=== PATIENT | female | born 1980 | race African-American/Black ===

== ENCOUNTER 2017-08-26 00:53 | Inpatient (IN) | payer OTHER ==
[~2017-08-26] VITALS: Ht 154.9 cm; Wt 100.7 kg
[2017-08-26] MEDS ORDERED: SODIUM CHLORIDE 0.9% 1000ML 1,000 ML IV SCH ×3 (03:00→04:00)
[2017-08-26] MEDS ORDERED: LORAZEPAM INJ 2 MG/ML VIAL IV ONE ×2 (04:15→14:50)
[2017-08-26] MEDS ORDERED: GABAPENTIN300 MG PO (05:34)
[2017-08-26] MEDS ORDERED: FOLIC ACID1 MG PO (05:34)
[2017-08-26] MEDS ORDERED: MORPHINE SULFAT30 M2 PO (05:34)
[2017-08-26] MEDS ORDERED: TIZANIDINE HCL4 M1 PO (05:34)
[2017-08-26] MEDS ORDERED: DILAUDID2 MG (05:34)
[2017-08-26] MEDS ORDERED: ACETAMINOPHEN 325 MG TAB PO ONE (08:15)
[2017-08-26 11:15] VITALS: BP 117/68
[2017-08-26] MEDS: SODIUM CHLORIDE 0.9% 1000ML 1,000 ML IV SCH ×2 (11:46→15:45)
[2017-08-26] MEDS ORDERED: NORCO 10-325 T1 EACH PO (12:04)
[2017-08-26] MEDS ORDERED: CYMBALTA30 MG PO (12:05)
[2017-08-26] MEDS ORDERED: LORAZEPAM INJ 2 MG/ML VIAL ONE ×2 (14:01→15:53)
[2017-08-26] MEDS ORDERED: HYDROCODONE/APAP 10MG-325MG TAB PO SCH (15:00)
[2017-08-26] MEDS: LORAZEPAM INJ 2 MG/ML VIAL IV PRN (15:53)
[2017-08-26 16:28] VITALS: BP 116/79
[2017-08-26] MEDS: GABAPENTIN 100 MG CAP PO SCH ×2 (17:19→20:54)
[2017-08-26] MEDS: TIZANIDINE HCL 4 MG TAB PO SCH (17:19)
--- NOTE | 2017-08-26 17:23 | Consultation ---
DATE OF CONSULTATION: August 26, 2017 INFECTIOUS DISEASE CONSULTATION REASON FOR CONSULTATION: Leukocytosis in a patient with sickle cell disease. HISTORY OF PRESENT ILLNESS: This is a patient who is a 37-year-old female who has sickle cell disease. Apparently she has been in several hospitals. She has been on several pain medications as an outpatient. She is telling me she gets Demerol and morphine as an outpatient, but she apparently ran out of them and started to have severe pain in her legs and feet; so, she came to the hospital. No fever or chills. The patient came to the emergency room with not feeling well. Apparently she had seizure, also. Infectious Disease was consulted. Neurology was consulted. The patient, who is currently lying in bed, looks comfortable, but she says she is having severe pain. PAST MEDICAL HISTORY: Sickle cell disease. Multiple admissions to the hospital. She has no IV access left. 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 PAST SURGICAL HISTORY: Several admissions to the hospital and no IV access anymore. ALLERGIES: IBUPROFEN. SOCIAL HISTORY: No smoking, drug abuse, alcohol abuse. FAMILY HISTORY: Otherwise sickle cell. REVIEW OF SYSTEMS: GENERAL: The patient is generally just not feeling well. HEENT: She is having headache. She is having nausea. Apparently there was seizure. She is having severe pain in her feet. She is having pain everywhere. She is feeling short of breath. Minimal cough. Pain in the joint. LABORATORY DATA: Still pending. PHYSICAL EXAMINATION: GENERAL: She is currently alert, oriented, does not seem to be in acute distress. VITALS: Stable. Currently afebrile. HEENT: She does not appear icteric. NECK: Supple. CHEST: Clear. HEART: S1/S2. No S3, no S4. No murmur. ABDOMEN: Soft. Bowel sounds present. No tenderness. EXTREMITIES: No edema. SKIN: No rash. IMPRESSION: I think the patient is having sickle cell crisis. There is no fever, no chills. I would suggest to obtain CBC and chem panel. If she has fever, will get blood cultures. The problem is she has no IV access. Will discuss with the attending. Discussed with Dr. Armando. From infectious disease point of view, at the present time just IV fluid, hydroxyurea. Will follow. Job#: [id number] EV
--- NOTE | 2017-08-26 18:45 | Consultation ---
DATE OF CONSULTATION: August 26, 2017 at 4:30 p.m. NEUROLOGICAL CONSULTATION REASON FOR CONSULTATION: Seizures. This 37-year-old female was brought to the emergency room because of severe pain in both legs. She described it as aching and sharp pain in both lower extremities, more on the right side. The patient had these symptoms off and on. While the patient was in the emergency room, she apparently had a generalized tonic/clonic seizure that lasted for several minutes with mild postictal state, reason for which she was hospitalized and was given Ativan 2 mg IV. The patient has history of sickle cell disease. She came to the emergency room saying that she is going to have a crisis and she has been hospitalized at many hospitals around the area for this same problem. She has been on a lot of narcotic medicine including morphine, Dilaudid, Narco and apparently she has run out of that. She has . The last time she has been hospitalized has been at [facility] 3 weeks ago for sickle cell crisis and for seizures. We had to request records because the patient has no recollection of the medications. She said at one time they gave her Keppra that does not work, Depakote that does not work, and then another medication that made her sick and another medication makes her sleepy. She does not remember taking Dilantin, or any other anticonvulsants. She lives alone. There is no one available to give the list of medications. The patient is asking for pain medication because of the pain in the lower extremities. PAST MEDICAL HISTORY: As mentioned. She has history of hypertension. Sickle cell disease. Asthma. Seizure disorder. She denies any other problems. ALLERGIES: SHE SAYS SHE HAS SOME ALLERGIES. MEDICATIONS: List of medications we do not have available. PHYSICAL EXAMINATION GENERAL: At this time of this examination, she apparently came out of the seizure several minutes ago and she is having the EEG. VITAL SIGNS: Blood pressure 116/79, pulse 90, temperature 96.7. LUNGS: Clear to auscultation. HEART: Regular sinus rhythm. ABDOMEN: No organomegaly, no tenderness. EXTREMITIES: Lower extremities a little edematous and painful to pressure. NEUROLOGIC: Speech is clear. She follows commands well. She is able to answer questions. Extraocular movements were full. Visual hughes were normal. No facial weakness. Tongue protrudes midline. The patient is able to elevate arms without any difficulty. Difficulty moving both legs because of the pain, but she says she is able to ambulate. Plantar stimulation down bilaterally. Very difficult to touch the legs because she screams with pain, and she is asking for pain medication, either Dilaudid or morphine. LABORATORY DATA: From the urgent care, all the tests, sodium, potassium, chloride normal. CBC shows a white count of 6900, hemoglobin 11.1, hematocrit 32.9 and platelets 255,000, all between normal range. Sodium and potassium are normal. Liver enzymes are normal. Urinalysis: Positive for oxycodone, morphine, , tricycles. I reviewed the EEG now and definitely the patient has several paroxysmal discharges, bipolar spikes, ____ wave amplitude lasting up to several seconds seen bilaterally. Record is contaminated with excessive muscle artifact. IMPRESSION 1. Seizure disorder, generalized tonic/clonic type, unspecified. 2. Hypertension. 3. Sickle cell crisis. 4. Drug addiction. RECOMMENDATIONS: Get records of medications. We have no medications. She does not know anything about the medications she has been taking, all the anticonvulsant medications have been given, and she said they do not work, but making her sick or making her sleepy. So, in the meantime we are going to keep her just on Ativan on a p.r.n. basis to control further seizures and discuss with the attending physician for further options. Last time she has been hospitalized at [facility]. We will try to get records from there. Job#: [id number]
[2017-08-26] MEDS: DEPAKOTE DELAYED-RELEASE TAB 500 MG PO SCH (19:21)
[2017-08-26] MEDS ORDERED: ONDANSETRON HCL INJ 2 MG/ML VIAL IV PRN (19:45)
[2017-08-26 20:00] VITALS: BP 111/68
[2017-08-26] MEDS: ACETAMINOPHEN/CODEINE 300MG - 30MG TAB PO PRN (20:54)
[2017-08-26] MEDS: LORATADINE 10 MG TAB PO SCH (20:54)
[2017-08-26] MEDS ORDERED: XANAX1 MG PO (23:06)
[2017-08-26] MEDS ORDERED: POTASSIUM CHLO20 ME1 PO (23:06)
[2017-08-26] MEDS ORDERED: LASIX40 MG PO (23:06)
[2017-08-26] MEDS ORDERED: PROMETHAZINE HC50 MG PO (23:06)
[2017-08-26] MEDS ORDERED: BENADRYL25 M1 PO (23:07)
[2017-08-26] MEDS ORDERED: HYDROMORPHO1 MG/1 ML IV (23:11)
[2017-08-26] MEDS ORDERED: ALPRAZOLAM 0.5 MG TAB PO PRN (23:30)
[2017-08-26] MEDS: ALPRAZOLAM 0.5 MG TAB PO SCH (23:54)
[2017-08-27] VITALS (8 sets, daily range): BP systolic 104–144; BP diastolic 60–83
[2017-08-27] MEDS ORDERED: GABAPENTIN 100 MG CAP PO ONE (00:45)
[2017-08-27] MEDS ORDERED: FUROSEMIDE INJ 10 MG/ML 4 ML VIAL IV ONE (00:45)
[2017-08-27] MEDS: POTASSIUM CHLORIDE 10 MEQ TABCR PO ONE ×2 (00:57→02:00)
[2017-08-27] MEDS: LORAZEPAM INJ 2 MG/ML VIAL IV PRN (01:15)
[2017-08-27] MEDS: ACETAMINOPHEN/CODEINE 300MG - 30MG TAB PO PRN (02:00)
[2017-08-27 02:15] LABS: BILIRUBIN,URINE NEGATIVE (NEGATIVE); KETONES,URINE NEGATIVE (NEGATIVE); LEUKOCYTE ESTERASE ,URINE NEGATIVE (NEGATIVE); NITRITE,URINE NEGATIVE (NEGATIVE); PROTEIN,URINE DIPSTICK NEGATIVE (NEGATIVE); URINE UROBILINOGEN 0.2 mg/dL (0.2 - 1)
[2017-08-27 02:16] LABS: CLARITY,URINE CLEAR (CLEAR); COLOR,URINE YELLOW (YELLOW)
[2017-08-27 02:18] LABS: AMPHETAMINES SCREEN,URINE NEGATIVE (NEGATIVE); BENZODIAZEPINES SCREEN,URINE POSITIVE (NEGATIVE); PHENCYCLIDINE SCREEN,URINE NEGATIVE (NEGATIVE)
[2017-08-27 02:27] LABS: BACTERIA,URINE FEW /HPF; EPITHELIAL CELLS,URINE FEW /LPF
[2017-08-27] MEDS: ALPRAZOLAM 0.5 MG TAB PO SCH ×3 (05:48→18:00)
[2017-08-27 07:35] LABS: BASOPHILS % 0.6 % (0.0-1.0); EOSINOPHILS # (AUTO) 0.1 (0.0-0.4); EOSINOPHILS % 2.1 % (0.0-6.0); HEMATOCRIT 31.8 % (34.2-44.1); LYMPHOCYTES # (AUTO) 1.8 (1.0-3.2); LYMPHOCYTES % 26.7 % (18.0-39.1); MEAN CORPUSCULAR HEMOGLOBIN 31.3 pg (28-32); MEAN CORPUSCULAR HGB CONC 34.6 g/dL (31-35); MEAN CORPUSCULAR VOLUME 90.6 fL (81-99); MONOCYTES # (AUTO) 0.4 (0.2-0.8); MONOCYTES % 6.1 % (4.4-11.3); NEUTROPHILS # (AUTO) 4.2 (2.1-6.9); NEUTROPHILS % 64.2 % (38.7-80.0); PLATELET COUNT 280 x10e3/uL (140-360); RED BLOOD COUNT 3.51 x10e6/uL (3.6-5.1); RED CELL DISTRIBUTION WIDTH 13.2 % (11.7-14.4)
[2017-08-27 07:59] LABS: ALANINE AMINOTRANSFERASE 18 IU/L (0-55); ALBUMIN 3.3 g/dL (3.5-5.0); ALKALINE PHOSPHATASE 67 IU/L (40-150); BLOOD UREA NITROGEN 7 mg/dL (7-26); BUN/CREATININE RATIO 9 (6-25); CALCIUM 9.3 mg/dL (8.4-10.2); CARBON DIOXIDE 25 mmol/L (22-29); CHLORIDE 108 mmol/L (98-107); CREATINE KINASE 278 IU/L (29-168); CREATININE, SERUM 0.79 mg/dL (0.57-1.11); EST GLOMERULAR FILTRATION RATE > 60 ML/MIN (60-); GLUCOSE 96 mg/dL (74-118); SODIUM 143 mmol/L (136-145)
[2017-08-27] MEDS ORDERED: SODIUM CHLORIDE 0.9% 250ML 250 ML ONE (08:57)
[2017-08-27] MEDS: DULOXETINE HCL 30 MG DELAYED RELEASE PO SCH (09:00)
[2017-08-27] MEDS: TIZANIDINE HCL 4 MG TAB PO SCH (09:00)
[2017-08-27] MEDS: DEPAKOTE DELAYED-RELEASE TAB 500 MG PO SCH ×2 (09:00→16:57)
[2017-08-27] MEDS: FOLIC ACID 1 MG TAB PO SCH (09:00)
[2017-08-27] MEDS: LORATADINE 10 MG TAB PO SCH (09:00)
[2017-08-27] MEDS ORDERED: SENNOSIDES 8.6 MG TAB PO SCH (09:00)
[2017-08-27] MEDS: NICOTINE 21 MG/EA PATCH TOP SCH (09:00)
[2017-08-27] MEDS: GABAPENTIN 100 MG CAP PO SCH ×3 (09:00→21:39)
[2017-08-27] MEDS: HYDROCODONE/APAP 10MG-325MG TAB PO PRN ×2 (09:05→16:55)
[2017-08-27] MEDS: PROMETHAZINE 12.5MG/ NACL 0.9% 12.5 MG/50 ML BAG IV PRN ×3 (09:05→22:55)
--- NOTE | 2017-08-27 16:15 | History and Physical ---
CHIEF COMPLAINT: Seizure. HISTORY: This is a 37-year-old female, has history of sick cell disease. The patient apparently dependent on narcotic. He is also on opiate with morphine, Dilaudid, and [place]. She, apparently, ran out of medication. She could not recall specifically giving any evidence that she is recently having the medication prescription. The last medication the [place] apparently with the pharmacy review with the RN here at [facility] was approximately 6 or 7 months ago. Patient came to emergency room today, outpatient emergency room, complaining of bilateral lower extremity pain. Patient is also having multiple seizure episodes. She did receive IV Ativan. The patient is completely coherent right now. She is trying to convince the nursing staff and myself that she is on narcotic and she needed pain medication. Apparently, she does have history of drug abuse with opiate and narcotic. Patient is currently stable. EEG showed that she does have history of seizure. She was on some sort of a seizure medication for which she could not recall either. History is very limited and very sporadic as well. Patient is, otherwise, stable at this time. Neurological consultation obtained with Dr. Armando. Please review his consultation report. PAST MEDICAL HISTORY: Seizure disorder, sickle cell disease, hypertension, anxiety, depression, narcotic dependency. PAST SURGICAL HISTORY: Cholecystectomy. SOCIAL HISTORY: Again, an opiate dependency/possible abuse. Patient is a smoker. ALLERGIES: APPARENTLY IBUPROFEN. HOME MEDICATIONS: Not at this time. PHYSICAL EXAMINATION GENERAL: The patient is anxious and asking for pain medication, but she is not in any distress this time. VITAL SIGNS: Temperature is 96. Blood pressure 116/79. Pulse rate is 72. Respirations 18. HEENT: Normocephalic, atraumatic. Anicteric. NECK: Supple grossly. Pulmonary diminished breath sounds without any wheezing. CARDIOVASCULAR: S1/S2. Regular rate and rhythm. ABDOMEN: Soft, obese. EXTREMITIES: No gross cyanosis, clubbing or edema. NEUROLOGIC: There is no gross focal deficit at this time. She is moving all extremities. LABORATORY: Still pending at this time. Laboratory at the ER: Sodium is 139, potassium 3.5, chloride 105, bicarb 30, BUN is 8, creatinine 0.9. Glucose is 98. Total bilirubin is 0.4. WBC 6.9, hemoglobin is 11.1, hematocrit 32.9, platelet is 255,000. Retic count still pending. IMPRESSIONS 1. Seizure disorder. 2. Chronic pain with narcotic dependency, possible abuse. 3. Mild anemia. 4. CT scan showed atelectasis and/or infiltrate in both lower lobes. PLAN: Continue with home medications when available. Seizures precautions. Consultation with Dr. Carrasquillo and Dr. Ascencion Armando. Will monitor patient closely during the night. Restart the patient on Depakote, seems like that is the medications that she was taking for seizures previously. Will obtain medical records for further planning on patient's care. Job#: [id number] CQ
[2017-08-27] MEDS: ENOXAPARIN SOD INJ 40 MG/0.4 ML SYR SC SCH (16:57)
[2017-08-27] MEDS ORDERED: TIZANIDINE HCL 4 MG TAB PO SCH (21:00)
[2017-08-27] MEDS: SENNOSIDES 8.6 MG TAB PO SCH (21:39)
[2017-08-28] VITALS (7 sets, daily range): BP systolic 106–120; BP diastolic 59–70
[2017-08-28] MEDS: HYDROCODONE/APAP 10MG-325MG TAB PO PRN ×3 (04:00→19:30)
[2017-08-28] MEDS: PROMETHAZINE 12.5MG/ NACL 0.9% 12.5 MG/50 ML BAG IV PRN ×2 (04:00→05:23)
[2017-08-28] MEDS: ALPRAZOLAM 0.5 MG TAB PO SCH (04:20)
[2017-08-28] MEDS: DIPHENHYDRAMINE HCL 25 MG CAP PO PRN ×2 (04:20→21:07)
[2017-08-28 07:20] LABS: BASOPHILS % 0.4 % (0.0-1.0); EOSINOPHILS # (AUTO) 0.2 (0.0-0.4); EOSINOPHILS % 1.9 % (0.0-6.0); HEMATOCRIT 33.7 % (34.2-44.1); HEMOGLOBIN 11.4 g/dL (12.0-16.0); LYMPHOCYTES # (AUTO) 1.6 (1.0-3.2); LYMPHOCYTES % 17.4 % (18.0-39.1); MEAN CORPUSCULAR HEMOGLOBIN 30.7 pg (28-32); MEAN CORPUSCULAR HGB CONC 33.8 g/dL (31-35); MEAN CORPUSCULAR VOLUME 90.8 fL (81-99); MONOCYTES # (AUTO) 0.6 (0.2-0.8); MONOCYTES % 6.3 % (4.4-11.3); NEUTROPHILS # (AUTO) 6.6 (2.1-6.9); NEUTROPHILS % 73.6 % (38.7-80.0); PLATELET COUNT 259 x10e3/uL (140-360); RED BLOOD COUNT 3.71 x10e6/uL (3.6-5.1); RED CELL DISTRIBUTION WIDTH 13.2 % (11.7-14.4)
[2017-08-28 07:45] LABS: ANION GAP 9.7 mmol/L (8-16); BLOOD UREA NITROGEN 5 mg/dL (7-26); BUN/CREATININE RATIO 6 (6-25); CALCIUM 9.2 mg/dL (8.4-10.2); CARBON DIOXIDE 28 mmol/L (22-29); CHLORIDE 108 mmol/L (98-107); CREATININE, SERUM 0.77 mg/dL (0.57-1.11); EST GLOMERULAR FILTRATION RATE > 60 ML/MIN (60-); GLUCOSE 114 mg/dL (74-118); POTASSIUM 3.7 mmol/L (3.5-5.1); SODIUM 142 mmol/L (136-145)
[2017-08-28] MEDS ORDERED: TIZANIDINE HCL 4 MG TAB PO PRN (08:30)
[2017-08-28] MEDS: DULOXETINE HCL 30 MG DELAYED RELEASE PO SCH (10:00)
[2017-08-28] MEDS: DEPAKOTE DELAYED-RELEASE TAB 500 MG PO SCH ×2 (10:00→17:37)
[2017-08-28] MEDS: LORATADINE 10 MG TAB PO SCH (10:00)
[2017-08-28] MEDS: NICOTINE 21 MG/EA PATCH TOP SCH (10:00)
[2017-08-28] MEDS: FOLIC ACID 1 MG TAB PO SCH (10:00)
[2017-08-28] MEDS: GABAPENTIN 100 MG CAP PO SCH ×3 (10:00→21:07)
[2017-08-28] MEDS: SENNOSIDES 8.6 MG TAB PO SCH ×2 (10:00→21:07)
[2017-08-28] MEDS: ENOXAPARIN SOD INJ 40 MG/0.4 ML SYR SC SCH (17:37)
[2017-08-28] MEDS: ALPRAZOLAM 0.5 MG TAB PO PRN ×2 (17:37→23:10)
[2017-08-29] VITALS: BP 115/72
[2017-08-29] MEDS: DIPHENHYDRAMINE HCL 25 MG CAP PO PRN (03:10)
[2017-08-29] MEDS: HYDROCODONE/APAP 10MG-325MG TAB PO PRN (03:10)
[2017-08-29] MEDS ORDERED: FENTANYL 25 MCG/HR PATCH TOP SCH (03:30)
[2017-08-29 04:00] VITALS: BP 107/59
[2017-08-29] MEDS: ALPRAZOLAM 0.5 MG TAB PO PRN (05:40)
[2017-08-29 08:15] VITALS: BP 120/68
[2017-08-29] MEDS: SENNOSIDES 8.6 MG TAB PO SCH (09:24)
[2017-08-29] MEDS: FOLIC ACID 1 MG TAB PO SCH (09:24)
[2017-08-29] MEDS: DULOXETINE HCL 30 MG DELAYED RELEASE PO SCH (09:24)
[2017-08-29] MEDS: GABAPENTIN 100 MG CAP PO SCH (09:24)
[2017-08-29] MEDS: DEPAKOTE DELAYED-RELEASE TAB 500 MG PO SCH (09:24)
[2017-08-29] MEDS: LORATADINE 10 MG TAB PO SCH (09:24)
[2017-08-29] MEDS: NICOTINE 21 MG/EA PATCH TOP SCH (09:24)
[2017-08-29] MEDS ORDERED: PROMETHAZINE HCL 25 MG TAB PO ONE (09:45)
--- NOTE | 2017-08-29 11:59 | Discharge Summary ---
CONSULTANTS: Dr. Jacquelyn Spencer. Dr. Ascencion Armando. Dr. Mima Carrasquillo. Dr. Luigi oMrrow of pain management. FINAL DIAGNOSES: 1. Narcotic dependency with chronic pain. 2. Panic disorder with anxiety attack. 3. Possible seizure. 4. History of sickle cell disease. There is no distal crisis. SUMMARY: Patient is a 37-year-old female. Came in to the outpatient emergency room while I was section beamer, unassigned call. The patient came in with pain of the lower extremity and upper extremity. She has generalized aches and pain and wanting narcotic, IV Dilaudid, asking throughout her hospitalization. She is also wanting promethazine with codeine along with Phenergan and along with other medications as well. She has stated with Dr. Armando that multiple seizure medications in the past did not work for the patient. She was on Depakote ER at one point. The patient may be on Depakote for mood stabilizer, since the patient has history of anxiety/depression as well. Her lab work otherwise unremarkable. Retic count was normal. There was no sign of sickle cell crisis, although the patient stating that she has history of sickle cell disease. She is slightly anemic, hemoglobin at 11.4, hematocrit 33.7. Renal function is normal. BUN is 5, creatinine 0.77. Dr. Carrasquillo does not feel that the patient needs antibiotics. She is overall stable. She has chronic pain. She is a smoker, one time caught smoking in the bathroom here. She did receive nicotine patch. The patient is otherwise stable. No further workup needed at this time. She is comfortable other than wanting nausea and cough syrup along with pain medication. Dr. Morrow consulted. The patient does have pain management as an outpatient. She is on extensive chronic pain medication. At this time, the patient is stable. I would like to send the patient home. Follow up with her family doctor and also with her pain management on Friday. The patient is comfortable overall. She will resume all home medication and for the benzodiazepines, I will give the patient Xanax 0.5 1 tablet q.6 hours as needed, with 30 tablets only. Phenergan 25 mg q.6 p.r.n. for nausea and vomiting orally, 30 tablets only. Depakote ER 500 mg 1 b.i.d. #60 for 1 month without refill. The patient is instructed to follow immediately with her family doctor and pain management on Friday. The patient is otherwise stable. Job#: [id number] [place]
== END 2017-08-29 10:41 | disposition home or self-care (01) | DRG 92 ==
LOC: FSED 00:53 → IMCU 10:43 → MED/SURG 13:28
PROVIDERS: ADMIT Internal Medicine; ATTEND Internal Medicine
DX: G89.29 Other chronic pain (principal); F11.20 Opioid dependence, uncomplicated; I10 Essential (primary) hypertension; J98.11 Atelectasis; G40.409 Other generalized epilepsy and epileptic syndromes, not intractable, without status epilepticus; F17.200 Nicotine dependence, unspecified, uncomplicated; Z88.6 Allergy status to analgesic agent; R53.81 Other malaise; F41.0 Panic disorder [episodic paroxysmal anxiety]; D57.1 Sickle-cell disease without crisis
CPT/HCPCS: 36415; 70450; 71250; 74176; 80048; 80053; 80307; 81001; 81025; 82550; 85025; 85045; 87086; 93005; 93970; 95816; 96360; 97139; J1650; J1940; J2060; J2405; J2550; J7030; J7050